=== PATIENT | female | born 1990 | race Hispanic/Latino ===

== ENCOUNTER 2018-01-15 10:06 | Emergency (ER) | payer SELFPAY ==
[2018-01-15 10:12] VITALS: BMI 19.3
[2018-01-15] MEDS ORDERED: Tdap Vaccine 0.5 ml Vial (10-64 yrs) IM ONE ×2 (10:30→10:56)
[2018-01-15] MEDS ORDERED: Bacitracin 500 Units/gm Oint Foilpak UD TOP STA (10:30)
--- NOTE | 2018-01-15 10:36 | ED PDOC ---
Upper Extremity Pain/Injury Time Seen by Provider: 01/15/18 10:21 Chief Complaint (Nursing): Upper Extremity Problem/Injury History Per: Patient Additional Complaint(s): Pt. states last night she tripped and fell injuring her L wrist, R wrist, and R knee. Reports no pain to R wrist and R knee. Denies other injury, numbness, tingling, LOC. Tetanus status uncertain. Past Medical History Reviewed: Historical Data, Nursing Documentation, Vital Signs Vital Signs: Last Vital Signs Temp 98.4 F 01/15/18 10:12 Pulse 68 01/15/18 10:12 Resp 17 01/15/18 10:12 BP 120/68 01/15/18 10:12 Pulse Ox 99 01/15/18 10:12 - Family History Family History: States: No Known Family Hx - Allergies Allergies/Adverse Reactions: Allergies Allergy/AdvReac Type Severity Reaction Status Date / Time No Known Allergies Allergy Verified 01/15/18 10:22 Review of Systems ROS Statement: Except As Marked, All Systems Reviewed And Found Negative Physical Exam - Physical Exam Appears: Positive for: Well, Non-toxic, No Acute Distress Skin: Positive for: Normal Color, Warm. Negative for: Rash Eye Exam: Positive for: Normal appearance Pulses-Radial (L): 2+ Pulses-Radial (R): 2+ Extremity: Positive for: Capillary Refill (< 2 seconds to LUE), Other (L thenar hand with superficial abrasion without swelling, tenderness, or deformity) Neurologic/Psych: Positive for: Alert, Oriented (x3) - ECG O2 Sat by Pulse Oximetry: 99 - Radiology X-Ray: Interpreted by Me (L wrist x-ray) X-Ray Interpretation: No Acute Disease - Progress ED Course And Treament: Tetanus prophylaxis administered. Bacitracin ointment applied to wounds. L wrist x-ray ordered. Disposition - Clinical Impression Clinical Impression: Wrist sprain, Abrasion - Patient ED Disposition Is Patient to be Admitted: No - Disposition Referrals: [facility] [Outside] Víctor Wild III, MD [Staff Provider] - Disposition: Routine/Home Disposition Time: 10:50 Condition: STABLE Additional Instructions: CIERRA LUGO, thank you for letting us take care of you today. Your provider was Norma Hauser MD and you were treated for LT WRIST INJURY. The emergency medical care you received today was directed at your acute symptoms. If you were prescribed any medication, please fill it and take as directed. It may take several days for your symptoms to resolve. Return to the Emergency Department if your symptoms worsen, do not improve, or if you have any other problems. Please contact your doctor or call one of the physicians/clinics you have been referred to that are listed on the Patient Visit Information form that is included in your discharge packet. Bring any paperwork you were given at discharge with you along with any medications you are taking to your follow up visit. Our treatment cannot replace ongoing medical care by a primary care provider outside of the emergency department. Thank you for allowing the [facility] team to be part of your care today. If you had an X-Ray or CT scan: A Radiologist will review the ED reading if any change in treatment is needed we will contact you. If you had a blood, urine, or wound culture: It will take several days for the results, if any change in treatment is needed we will contact you. If you had an STI test: It will take 48 hours for the results. Please call after 1 week if you have not heard back. Instructions: Wrist Sprain (DC) Forms: [employer] (Faroese)
[2018-01-15] MEDS ORDERED: Bacitracin 500 Units/gm Oint Foilpak UD ONE (10:56)
[2018-01-15 11:07] VITALS: PULSE 78; RESP 18; TEMP 97; O2SAT 98
[2018-01-15 11:20] VITALS: BP 128/78
--- NOTE | 2018-01-15 11:32 | RAD ---
Date of service: 01/15/2018 PROCEDURE: Left Wrist Radiographs. HISTORY: trauma COMPARISON: None. FINDINGS: BONES: Three views of the left wrist were performed. Navicular bone is intact. Remainder of the carpal bones are intact. No fracture is seen. No lytic process is noted. Metacarpals are intact. There is normal alignment on the lateral view. JOINTS: Normal. No dislocation. SOFT TISSUES: Normal. OTHER FINDINGS: None. IMPRESSION: No appreciable fracture.
== END 2018-01-15 11:20 | disposition home or self-care (01) ==
LOC: H.ER 10:06
DX: S63.502A Unspecified sprain of left wrist, initial encounter (principal); S60.812A Abrasion of left wrist, initial encounter; W19.XXXA Unspecified fall, initial encounter; Y92.89 Other specified places as the place of occurrence of the external cause